=== PATIENT | male | born 1975 | race Caucasian/White ===

== ENCOUNTER 2021-02-18 02:50 | Emergency (ER) | payer MEDICARE, OTHER ==
[~2021-02-18] VITALS: Ht 172.7 cm; Wt 59.4 kg
--- OUTSIDE RECORDS SUMMARY | 2021-02-18 02:52 | XMS ---
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 Allyson has no Care Guidelines for this patient. Tiffanie VISIT COUNT (12 MO.) 1 [facility] TOTAL 1 NOTE: Visits indicate total known visits. ED/C VISIT TRACKING (12 MO.) 02/18/2021 02:50 [facility] [place] TYPE: Emergency COMPLAINT: - RT HAND LACERATION INPATIENT VISIT TRACKING (12 MO.) No inpatient visits to display in this time frame [id number]
[2021-02-18] MEDS ORDERED: CITALOPRAM HBR20 MG PO (03:09)
[2021-02-18] MEDS ORDERED: OXYCODONE HCL5 MG PO (03:10)
[2021-02-18] MEDS ORDERED: OXYCONTIN10 MG PO (03:10)
[2021-02-18] MEDS ORDERED: MYCOPHENOLIC A180 MG PO (03:11)
[2021-02-18] MEDS ORDERED: CHOLESTYRAMINE378 GM PO (03:11)
[2021-02-18] MEDS ORDERED: SYNTHROID25 MCG PO (03:12)
[2021-02-18] MEDS ORDERED: TACROLIMUS1 MG PO (03:12)
== END 2021-02-18 04:32 | disposition home or self-care (01) ==
LOC: ED 02:50
DX: S61.212A Laceration without foreign body of right middle finger without damage to nail, initial encounter (principal); Z23 Encounter for immunization; W26.0XXA Contact with knife, initial encounter; N18.6 End stage renal disease; Z79.899 Other long term (current) drug therapy
CPT/HCPCS: 12002; 90471; 90715; 99282-25

== ENCOUNTER 2021-08-30 22:49 | Emergency (ER) | payer OTHER ==
[~2021-08-30] VITALS: Ht 172.7 cm; Wt 59.4 kg
[~2021-08-30 22:49] MED LIST: CHOLESTYRAMINE378 GM PO; CITALOPRAM HBR20 MG PO; MYCOPHENOLIC A180 MG PO; OXYCODONE HCL5 MG PO; OXYCONTIN10 MG PO; SYNTHROID25 MCG PO; TACROLIMUS1 MG PO
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
== END 2021-08-31 00:04 | disposition home or self-care (01) ==
LOC: ED 22:49
DX: S01.81XA Laceration without foreign body of other part of head, initial encounter (principal); W22.8XXA Striking against or struck by other objects, initial encounter; N18.6 End stage renal disease; Z79.899 Other long term (current) drug therapy
CPT/HCPCS: 12013; 99282-25